=== PATIENT | female | born 1990 | race Two or more races ===

== ENCOUNTER → 2021-06-16 | Day surgery (SDC) | payer MEDICAID ==
[2021-06-14 10:54] LABS: Basophils # (auto) 0.1 10 ^3/uL (0-0.2); Basophils % (auto) 2.2 % (0.0-2.0); Eosinophils # (auto) 0.1 10 ^3/uL (0-0.8); Eosinophils % (auto) 1.6 % (0.0-7.0); Hematocrit 39.6 % (36.0-46.0); Hemoglobin 13.4 g/dL (12.2-16.2); Lymphocytes # (auto) 2.4 10 ^3/uL (0.4-5.4); Lymphocytes % (auto) 40.2 % (10.0-50.0); Mean Corpuscular Hemoglobin 29.8 pg (28.0-32.0); Mean Corpuscular Hgb Conc. 33.8 g/dL (32.0-36.0); Mean Corpuscular Volume 88.2 fL (80.0-100.0); Monocytes # (auto) 0.5 10 ^3/uL (0-1.3); Monocytes % (auto) 8.8 % (0.0-12.0); Neutrophils # (auto) 2.8 10 ^3/uL (1.6-8.6); Neutrophils % (auto) 47.2 % (37.0-80.0); Nucleated Red Blood Cells % 0.2 %; Red Blood Cells 4.49 10^6/uL (4.0-5.20); Red Cell Distribution Width 13.3 % (11.8-14.3)
[2021-06-14 11:12] LABS: Partial Thromboplastin Time 26.6 sec (23.6-33.0)
[2021-06-14 11:24] LABS: Urine Bacteria NONE SEEN /hpf (None Seen); Urine Blood Negative /uL (Negative); Urine Specific Gravity 1.004 (1.001-1.035); Urine WBC <1 /hpf (0 - 5)
[2021-06-14 11:59] LABS: Albumin 3.7 g/dL (3.4-5.0); Calcium 8.7 mg/dL (8.5-10.1); Potassium 3.9 mmol/L (3.5-5.1)
[2021-06-14 12:03] LABS: BUN/Creatinine Ratio 13.6; Bilirubin, Total 0.3 mg/dL (0.2-1.0); Total Protein 7.4 g/dL (6.4-8.2)
[~2021-06-16] VITALS: Ht 170.2 cm; Wt 103.9 kg
[~2021-06-16] MED LIST: ALBUAER3 IN; ASPI1TAB20 PO; BUPIVACAINE 0.5% P/F INJ 10 ML VIAL ONE; BUPIVACAINE HCL 50 ML ONE; CEPH500C PO; CYAN1TAB14 PO; DexAMETHasone SOD PHOS 10MG/1ML VIAL INJ IV ONE; EPIN0.3I24 IJ; HYDROmorphone HCL 2 MG/ML VL/or syr IV PRN; IBUP600T27 PO; IBUP800T27 PO; LEVO25TA6 PO; LIDOCAINE 1% HCL (LOCAL ANESTH.) INJ 20ML MDV ONE; MAGN400T40 OR; MIDAZOLAM HCL 2MG/2ML 2ml VIAL (1mg/ml) ONE; MORPHINE SULFATE 4 MG/ML SYR/VIAL IV PRN; ONDANSETRON HCL 4 MG/2 ML VIAL IV PRN; ONDANSETRON HCL 4 MG/2 ML VIAL ONE; PANT40TA2 PO; PREG100C PO; PROM25TA5 OR; PROPOFOL 10 MG/ML 20 ML IV ONE; RIBA200C38 PO; ROPIVACAINE 0.5% (5MG/ML) 20ML AMPULE IJ ONE; SODIUM CHLORIDE LOCK 10 ML ONE; UBRO100T2 PO; ceFAZolin 1GM/50ML 100 ML IV ONE; fentaNYL CITRATE 100 MCG/2 ML VL ONE
[2021-06-16 16:00] VITALS: BP 102/62
== END | disposition home or self-care (01) ==
LOC: SUR 09:40
PROVIDERS: ATTEND Student in an Organized Health Care Education/Training Program
DX: M25.372 Other instability, left ankle (principal); M76.72 Peroneal tendinitis, left leg; G89.29 Other chronic pain; J44.9 Chronic obstructive pulmonary disease, unspecified; E66.9 Obesity, unspecified; E03.9 Hypothyroidism, unspecified; G40.909 Epilepsy, unspecified, not intractable, without status epilepticus; Z68.35 Body mass index [BMI] 35.0-35.9, adult; Z98.890 Other specified postprocedural states; Z79.899 Other long term (current) drug therapy; Z91.013 Allergy to seafood; Z86.73 Personal history of transient ischemic attack (TIA), and cerebral infarction without residual deficits; Z20.822 Contact with and (suspected) exposure to COVID-19
CPT/HCPCS: 27695; 36415; 73600; 80053; 81001; 81025; 84702; 85025; 85610; 85730; C1713; J0690; J1100; J2001; J2250; J2405; J2704; J2795; J3010; J3490; U0003; 76000